=== PATIENT | male | born 1980 | race Caucasian/White ===

== ENCOUNTER → 2021-07-02 13:45 | Outpatient (CLI) | payer OTHER, SELFPAY ==
--- NOTE | ~2021-07-02 | XR_ITS ---
EXAMINATION: XR elbow RT min 3V DATE: 07/02/2021 14:02 INDICATION: Right elbow injury. TECHNIQUE: 4 views of right elbow were obtained. COMPARISON: None. FINDINGS: Bone alignment is normal. No fracture. Joint spaces are well maintained. There is no elbow joint effusion. IMPRESSION: 1. Normal right elbow. Reviewed, dictated and finalized at location A. ONAL LINES AGENT IMPRESSION: 1. Normal right elbow.
== END ==
PROVIDERS: PCP Physician Assistant; Visit Provider Physician Assistant
DX: S59.901A Unspecified injury of right elbow, initial encounter (principal); X58.XXXA Exposure to other specified factors, initial encounter
CPT/HCPCS: 73080

== ENCOUNTER 2022-11-10 12:52 | Outpatient (CLI) | payer OTHER, SELFPAY ==
--- NOTE | 2022-11-10 14:30 | NEURO_ITS ---
Impression: # Complains of numbness and pain in hands. # Bilateral Carpal Tunnel Syndrome, right more than left. # No ulnar neuropathy. # Normal needle/EMG. Nerve Conduction Studies Anti Sensory Summary Table Stim Site NR Peak (ms) P-T Amp (?V) Site1 Site2 Delta-P (ms) Dist (cm) Andres (m/s) Left Median Anti Sensory (2-3nd Digit) Wrist 3.9 19.1 Wrist 2-3nd Digit 3.9 14.0 36 Wrist 4.2 19.1 Wrist 2-3nd Digit 3.9 14.0 36 Right Median Anti Sensory (2-3nd Digit) Wrist 4.2 29.8 Wrist 2-3nd Digit 4.2 14.0 33 Wrist 5.8 60.0 Wrist 2-3nd Digit 4.2 14.0 33 Left Radial Anti Sensory (Base 1st Digit) Wrist 2.3 22.7 Wrist Base 1st Digit 2.3 0.0 Right Radial Anti Sensory (Base 1st Digit) Wrist 2.4 7.6 Wrist Base 1st Digit 2.4 0.0 Left Ulnar Anti Sensory (5th Digit) Wrist 2.7 32.0 Wrist 5th Digit 2.7 14.0 52 Right Ulnar Anti Sensory (5th Digit) Wrist 2.7 15.3 Wrist 5th Digit 2.7 14.0 52 Motor Summary Table Stim Site NR Onset (ms) O-P Amp (mV) Site1 Site2 Delta-0 (ms) Dist (cm) Andres (m/s) Left Median Motor (Abd Poll Brev) Wrist 4.8 3.0 Elbow Wrist 6.1 32.0 52 Elbow 10.9 1.6 Right Median Motor (Abd Poll Brev) Wrist 5.1 3.2 Elbow Wrist 6.2 32.0 52 Elbow 11.3 2.5 Left Ulnar Motor (Abd Dig Minimi) Wrist 2.7 9.1 A Elbow Wrist 5.8 32.0 55 A Elbow 8.5 7.7 Right Ulnar Motor (Abd Dig Minimi) Wrist 2.6 7.6 A Elbow Wrist 5.8 32.0 55 A Elbow 8.4 6.2 F Wave Studies NR F-Lat (ms) L-R F-Lat (ms) Left Median (Mrkrs) (Abd Poll Brev) 31.37 1.56 Right Median (Mrkrs) (Abd Poll Brev) 32.93 1.56 Left Ulnar (Mrkrs) (Abd Dig Min) 31.09 0.17 Right Ulnar (Mrkrs) (Abd Dig Min) 31.27 0.17 EMG Side Muscle Nerve Root Ins Act Fibs Amp Dur Recrt Comment Right 1stDorInt Ulnar C8-T1 Nml Nml Nml Nml Nml Right Ext Indicis Radial (Post Int) C7-8 Nml Nml Nml Nml Nml Right Ext Digitorum Radial (Post Int) C7-8 Nml Nml Nml Nml Nml Right BrachioRad Radial C5-6 Nml Nml Nml Nml Nml Right PronatorTeres Median C6-7 Nml Nml Nml Nml Nml Right Abd Poll Brev Median C8-T1 Nml Nml Nml Nml Nml Left 1stDorInt Ulnar C8-T1 Nml Nml Nml Nml Nml Left Ext Indicis Radial (Post Int) C7-8 Nml Nml Nml Nml Nml Left Ext Digitorum Radial (Post Int) C7-8 Nml Nml Nml Nml Nml Left BrachioRad Radial C5-6 Nml Nml Nml Nml Nml Left PronatorTeres Median C6-7 Nml Nml Nml Nml Nml Left Abd Poll Brev Median C8-T1 Nml Nml Nml Nml Nml MTDD
== END 2022-11-10 12:53 | disposition home or self-care (01) ==
LOC: ANHNEURO 12:53
PROVIDERS: PCP Physician Assistant; Visit Provider Orthopaedic Surgery
DX: G56.03 Carpal tunnel syndrome, bilateral upper limbs (principal)
CPT/HCPCS: 95886; 95911

== ENCOUNTER 2023-06-09 12:21 | Outpatient (CLI) | payer OTHER, SELFPAY ==
--- NOTE | 2023-06-09 15:44 | ECG_ITS ---
Measurements Intervals Horner Rate: 81 P: 35 MA: 155 QRS: 12 QRSD: 98 T: 24 QT: 362 QTc: 421 Interpretive Statements SINUS RHYTHM NONSPECIFIC T-WAVE ABNORMALITY ABNORMAL ECG NO PREVIOUS ECG AVAILABLE FOR COMPARISON Electronically Signed On 06-10-2023 15:03:41 CHEMICAL RESEARCH WORKER by Esau Garcia M.D.
== END 2023-06-09 12:22 | disposition home or self-care (01) ==
PROVIDERS: PCP Physician Assistant; Visit Provider Orthopaedic Surgery
DX: I10 Essential (primary) hypertension (principal); Z01.818 Encounter for other preprocedural examination
CPT/HCPCS: 93005

== ENCOUNTER 2023-06-15 00:45 | Day surgery (SDC) | payer OTHER, SELFPAY ==
[2023-06-08 09:52] VITALS: BMI 40.2
--- NOTE | 2023-06-08 09:57 | PC.NURSE ---
Report to the Outpatient Waiting Room, entrance under the green pavilion located off [facility], at time 10:00 on date 06/15/23. Planned Procedure Time: 12:00. Time changes happen often and if your time is changed the preop area will call you the afternoon before. - You and your visitor will be asked to self-screen and do not enter if you have any COVID symptoms. - A mask is optional within the hospital at this time. Patients may have clear liquids (water, carbonated beverages, clear teas, apple juice) until 3 hours prior to surgery (9:00) with a maximum of 20 ounces. - No food from midnight until time of surgery Take the following medications with a SIP of water the morning of surgery: INHALER, ESCITALOPRAM DO NOT STOP ANY OF YOUR OTHER PRESCRIPTION MEDICATIONS PRIOR TO SURGERY ?EXCEPT THE FOLLOWING Medications to discontinue per physician: N/A Date to take last dose: N/A Please no make-up, nail upper sorbian, hairspray, perfume, deodorant, or body powder the day of surgery. No jewelry (including any body piercings) or valuables the day of surgery, leave them at home. Please take a shower or bath the night before, or the morning of, surgery with an antibacterial soap. Wear comfortable, loose fitting clothing. - Jewelry must be removed prior to entering the operating room. Rings and piercings that are not removed may be cut off. - The hospital will not accept responsibility for valuables. - Please leave all valuables, including medications, at home the day of surgery. If you are going home after surgery, a licensed nascar driver must drive you home. - NO public transportation without another adult if you receive anesthesia. - We recommend that an adult stay with you for 24 hours following discharge. - We also recommend that you do not drive, make important decision, drink alcoholic beverages, or take any drugs that were not prescribed by your health care provider for at least 24 hours after your discharge time. Follow any additional instructions given to you from your surgeon. If you or anyone in your household have experienced Covid symptoms in the past week, please notify your surgeon or the nurse liaison at the phone number below for possible testing. Telephone instructions given to PT - DAVID ELIZONDO and asked if any additional questions and then verbalized understanding. Patient advised to call surgeon office or pre surgery nurse liaison [phone] if any additional questions.
[2023-06-15] VITALS (10 sets, daily range): BP systolic 114–142; BP diastolic 71–95; PULSE 51–68; RESP 11–20; TEMP 36.2–36.6; O2SAT 96–100
--- NOTE | 2023-06-15 09:23 | PM.IMHP ---
H&P: HPI History of Present Illness Date/Time: 06/15/23 09:23 Chief Complaint: right carpal and cubital tunnel syndrome Narrative: 42-year-old male who presents today for a right carpal tunnel release and cubital tunnel decompression versus anterior transposition. He has been having symptoms for about 8 hours. He has numbness and tingling throughout the hand predominantly in the 4th and 5th fingers. He has numbness during the day. He also gets numbness while he is trying to ride his motorcycle. He gets numbness in all 5 fingers. Patient has had a nerve conduction velocity test done in 2022 which showed no ulnar neuropathy but did show bilateral carpal tunnel syndrome right greater than left. He has tried wrist braces and has avoided bending the elbow or having the elbow bent for extended periods time during the day. However he has continued symptoms of numbness and tingling in his fingers. This point he feels he would like to proceed with surgery to try to get better relief of his symptoms. Review of Systems Review of Systems: All systems reviewed & are unremarkable except as noted in HPI and below PMFSH Social History Social History Smoking packs per day: 0.75 Smoking cigarettes per day: 15.0 Years smoked: 16 Smoking pack-years: 12.00 Smoking status: Former smoker Tobacco type: cigarettes Smoking end date: 04/25/19 Alcohol intake: current Alcohol use details: RARE Substance use: current Substance use type: marijuana Living arrangements: with family Spiritual care concerns: No Meds Home Medications and Allergies Home Medications Medication Instructions Recorded Confirmed Type budesonide-formoterol HFA 160 2 inh inhalation DAILY 06/08/23 06/08/23 History mcg-4.5 mcg/actuation aerosol inhaler (Symbicort) escitalopram oxalate 10 mg tablet 10 mg PO DAILY 06/08/23 06/08/23 History losartan 100 mg tablet 100 mg PO DAILY 06/08/23 06/08/23 History montelukast 10 mg tablet 10 mg PO DAILY 06/08/23 06/08/23 History omeprazole 20 mg capsule,delayed 20 mg PO DAILY 06/08/23 06/08/23 History release phenylephrine HCl 10 mg tablet 10 mg PO DAILY 06/08/23 06/08/23 History (Sudafed PE) rosuvastatin 5 mg tablet 5 mg PO DAILY 06/08/23 06/08/23 History triamcinolone acetonide 55 mcg 1 spray intranasal DAILY 06/08/23 06/08/23 History nasal spray aerosol (Nasacort) Allergies Allergy/AdvReac Type Severity Reaction Status Date / Time Penicillins Allergy Anaphylaxis Verified 06/08/23 09:49 Exam Narrative: 42-year-old male alert. There is no subluxation of the ulnar nerve with range of motion of the right elbow. He has an extremely sensitive Tinel's over the ulnar nerve which causes tingling in the ulnar hand and 4th and 5th finger. He denies any constant sense of numbness in the ulnar 2 fingers. Tinel's over the median nerve bilaterally is negative. Phalen's maneuver causes aching some tingling in the fingers. He has normal Intrinsic strength in the hand. Thenar eminence has normal bulk. He reports no numbness or tingling to light touch to the hand or fingers. He has full range of motion of the wrist fingers and elbow. Full range of motion of the neck without discomfort. Resp: Auscultation: clear to auscultation bilaterally Cardio: Rate: regular rate Rhythm: regular rhythm Assessment and Plan Assessment and plan (1) Carpal tunnel syndrome of right wrist: Code(s): G56.01 - Carpal tunnel syndrome, right upper limb Status: Acute Plan 42-year-old male who has a positive EMG test for right greater than left carpal tunnel syndrome. He has continued symptoms of numbness in the hand. He also has evidence of cubital tunnel syndrome on the right on physical exam. He also has continued symptoms of cubital tunnel on the right. He has been having symptoms for years. He has tried nonsurgical treatment for this without improvement. I would like to proceed
[2023-06-15] MEDS: ACETAMINOPHEN 500 MG TABLET 1000 MG PO (10:54)
[2023-06-15] MEDS: KETOROLAC 15 MG/ML VIAL (*BKC) IV PUSH (10:55)
--- NOTE | 2023-06-15 11:04 | WPDANESEPPF ---
Anes - Initial Pre Proc Eval Procedure: Operation Date: 06/15/23 12:00 Proposed Procedures p Right Carpal Tunnel Release - Blaine Mercado MD s Right Cubital Tunnel Release versus Possible Anterior Transposition Ulnar Nerve - Blaine Mercado MD Date/Time: 06/15/23 11:04 Surgeon: Blaine Mercado MD Pre Op Diagnosis: Rt Carpal Tunnel Syndrome, Rt Cubital Tunnel Syn Patient Data Age: 42 Gender: M Height: 1.85 m Weight: 136.4 kg Last Vital Signs Temp 36.6 C 06/15/23 10:20 Pulse 68 06/15/23 10:20 Resp 20 06/15/23 10:20 BP 142/82 H 06/15/23 10:20 Pulse Ox 97 06/15/23 10:20 O2 Del Method Room Air 06/15/23 10:20 Allergies Allergy/AdvReac Type Severity Reaction Status Date / Time Penicillins Allergy Anaphylaxis Verified 06/15/23 09:53 Home Medications Medication Instructions Recorded Confirmed Type budesonide-formoterol HFA 160 2 inh inhalation DAILY 06/08/23 06/15/23 History mcg-4.5 mcg/actuation aerosol inhaler (Symbicort) escitalopram oxalate 10 mg tablet 10 mg PO DAILY 06/08/23 06/15/23 History losartan 100 mg tablet 100 mg PO DAILY 06/08/23 06/15/23 History montelukast 10 mg tablet 10 mg PO DAILY 06/08/23 06/15/23 History omeprazole 20 mg capsule,delayed 20 mg PO DAILY 06/08/23 06/15/23 History release phenylephrine HCl 10 mg tablet 10 mg PO DAILY 06/08/23 06/15/23 History (Sudafed PE) rosuvastatin 5 mg tablet 5 mg PO DAILY 06/08/23 06/15/23 History triamcinolone acetonide 55 mcg 1 spray intranasal DAILY 06/08/23 06/15/23 History nasal spray aerosol (Nasacort) Patient hx anesthesia problems: none Family hx anesthesia problems: none Results Review: All pre-operative results and documents have been reviewed as part of the pre-operative evaluation. [facility] Social History Social History Smoking packs per day: 0.75 Smoking cigarettes per day: 15.0 Years smoked: 16 Smoking pack-years: 12.00 Smoking status: Former smoker Tobacco type: cigarettes Smoking end date: 04/25/19 Alcohol intake: current Alcohol use details: RARE Substance use: current Substance use type: marijuana Living arrangements: with family Spiritual care concerns: No Anes - Eval Final PreProcedure Day of Procedure 06/15/23 11:04 Patient weight: obese Heart: regular rate and rhythm Lungs: decreased breath sounds Airway: Mallampati scale class II Neurological: alert and oriented Last oral intake: >/= 8 hours ASA classification: III Emergent: no Anesthetic plan: proceed Anesthesia type and monitoring: general LMA and standard monitoring Results Review: All pre-operative results and documents have been reviewed as part of the pre-operative evaluation. Informed Consent: The patient's anesthetic plan and its attendant risks and benefits were discussed with the patient/family/POA. Questions were solicited and answers provided to the satisfaction of the patient/family/POA.
[2023-06-15] MEDS: LACTATED RINGERS 1,000 ML 30 ML IV CONT ×3 (11:47→14:36)
[2023-06-15] MEDS: SCOPOLAMINE 1 MG PATCH 1 PATCH TRANSDERM (11:50)
--- NOTE | 2023-06-15 12:00 | WPDHPUPDATE1 ---
History and Physical Update Update Date/Time: 06/15/23 12:00 History and Physical has been reviewed, including an updated exam of the patient. There are NO changes in the patient's condition. Risks, benefits, and alternatives have been discussed and questions answered. Patient agrees to proceed with procedure.
[2023-06-15] MEDS: ceFAZolin 3 GM/D5W 100 ML 100 ML IVPB (12:18)
[2023-06-15] MEDS: LIDO 1%/EPINEPHRINE 1:100,000 50 ML VIAL 30 ML INFILTRATE (12:53)
--- NOTE | 2023-06-15 14:26 | P.OP_ITS ---
Procedure Note - Detailed Date of Procedure 06/15/23 Pre-op Diagnosis Rt Carpal Tunnel Syndrome, Rt Cubital Tunnel Syn Post-op Diagnosis Same Procedure Performed Right cubital tunnel decompression, right carpal tunnel release Surgeon Blaine Mercado MD Desk Pen Set Assembler Tushar Anesthesia General Description of Procedure Patient was brought to the operating room and general anesthesia was administered. He received 3 g of Ancef IV and had no reaction. Right arm was prepped draped usual fashion. Limb was exsanguinated tourniquet elevated to 250 mmHg. Prior to elevation of the tourniquet the incision was marked over the cubital tunnel 6 cm longitudinal incision and 1 in incision marked at the base of the palm in line with the radial border of 4th ray. Local anesthesia was administered 1% lidocaine with epinephrine at both. 6 cm longitudinal incision was made centered over the cubital tunnel. Dissection was carried down through the skin and and we carefully dissected through the subcutaneous fat and bursal tissue. We identified 2 branches of medial brachial cutaneous nerves spanning the mid and distal portions of the incisions and these were isolated with vessel loops. Fascia over the ulnar nerve just proximal to the cubital tunnel the cubital tunnel and the fascia over the half see you was exposed. We incised fascia proximal to the cubital tunnel identifying the ulnar nerve and then we decompress the cubital tunnel proximally distal toward the posterior side of the cubital tunnel and then incised the flexor carpi ulnaris fascia over the ulnar for distance of 2 cm distal to the medial epicondyle and deep fascia was released seemed to be bit tight. The nerve was large there was no bulbous swelling. The elbow was taken through range of motion there was no subluxation. The 1 in incision at the base of the palm line with the 4th ray axis was incised. Dissection carried down through the superficial palmar fascia the transverse carpal ligament which was longitudinally incised. Complete release was achieved distally. Proximally a subcutaneous fat was elevated off the distal volar form fascia and a Erie and elevator passed underneath the fascia from the underlying nerve and the fascia was split for a distance of 3 cm proximal to the flexor crease of the wrist completing the decompression. The nerve was visualized and looked unremarkable there are no masses the canal. Tourniquet was released release related. The appropriate tunnel incision was repaired with interrupted simple and horizontal mattress 4-0 nylon sutures. The cubital tunnel decompressions his was closed with 3-0 subcutaneous Vicryl and glue. EBL was probably 3 cc, unremarkable. Total tourniquet time was 44 minutes. Soft bulky dressings were applied the patient transferred postop recovery room stable condition. Estimated Blood Loss 3 Tourniquet Time Total Tourniquet Time: 44 Complications No immediate complications Disposition PACU
[2023-06-15] MEDS: oxyCODONE HCL (*CRX) 5 MG TAB IR PO (15:20)
== END 2023-06-15 16:05 | disposition home or self-care (01) ==
PROVIDERS: PCP Physician Assistant; Visit Provider Orthopaedic Surgery
PROC: (CPT 64721; principal; 2023-06-15 12:00)
PROC: (CPT 64721; 2023-06-15 12:00)
DX: G56.01 Carpal tunnel syndrome, right upper limb (principal); G56.21 Lesion of ulnar nerve, right upper limb; Z79.51 Long term (current) use of inhaled steroids; Z87.891 Personal history of nicotine dependence; F12.90 Cannabis use, unspecified, uncomplicated; E66.9 Obesity, unspecified; Z68.39 Body mass index [BMI] 39.0-39.9, adult
CPT/HCPCS: 64721; 64718; 93005; A4565; A9270; J0690; J1100; J1885; J2250; J2405; J2704; J3010; J7120

== ENCOUNTER 2023-06-29 01:18 | Day surgery (SDC) | payer OTHER, SELFPAY ==
--- NOTE | 2023-06-21 14:45 | PC.NURSE ---
Report to the Outpatient Waiting Room, entrance under the green pavilion located off [facility], at time 1100 on date 06/29/23. Planned Procedure Time: 1300. Time changes happen often and if your time is changed the preop area will call you the afternoon before. - You and your visitor will be asked to self-screen and do not enter if you have any COVID symptoms. - A mask is optional within the hospital at this time. Patients may have clear liquids (water, carbonated beverages, clear teas, apple juice) until 3 hours prior to surgery with a maximum of 20 ounces. - No food from midnight until time of surgery Take the following medications with a SIP of water the morning of surgery: INHALER, ESCITALOPRAM DO NOT STOP ANY OF YOUR OTHER PRESCRIPTION MEDICATIONS PRIOR TO SURGERY ?EXCEPT THE FOLLOWING Medications to discontinue per physician: N/A Date to take last dose: N/A Please no make-up, nail hungarian, hairspray, perfume, deodorant, or body powder the day of surgery. No jewelry (including any body piercings) or valuables the day of surgery, leave them at home. Please take a shower or bath the night before, or the morning of, surgery with an antibacterial soap. Wear comfortable, loose fitting clothing. - Jewelry must be removed prior to entering the operating room. Rings and piercings that are not removed may be cut off. - The hospital will not accept responsibility for valuables. - Please leave all valuables, including medications, at home the day of surgery. If you are going home after surgery, a licensed train driver must drive you home. - NO public transportation without another adult if you receive anesthesia. - We recommend that an adult stay with you for 24 hours following discharge. - We also recommend that you do not drive, make important decision, drink alcoholic beverages, or take any drugs that were not prescribed by your health care provider for at least 24 hours after your discharge time. Follow any additional instructions given to you from your surgeon. If you or anyone in your household have experienced Covid symptoms in the past week, please notify your surgeon or the nurse liaison at the phone number below for possible testing. Telephone instructions given to PT - DAVID ELIZONDO and asked if any additional questions and then verbalized understanding. Patient advised to call surgeon office or pre surgery nurse liaison [phone] if any additional questions.
[2023-06-21 14:47] VITALS: BMI 39.6
--- NOTE | 2023-06-24 08:56 | PM.IMHP ---
H&P: HPI History of Present Illness Date/Time: 06/24/23 08:56 Chief Complaint: Left carpal tunnel syndrome Narrative: 42-year-old male presents today for a left carpal tunnel release. Patient underwent right carpal tunnel release and cubital tunnel decompression on June 15. He had good relief of his symptoms. He has continued sense of numbness and tingling in the left hand. He has had a nerve test last summer which showed bilateral carpal tunnel syndrome. Patient is continuing to have tingling in the left hand predominantly in the central 3 fingers. At this point he feels he is ready proceed with left carpal tunnel release. Review of Systems Review of Systems: All systems reviewed & are unremarkable except as noted in HPI and below PMFSH Social History Social History Smoking packs per day: 0.75 Smoking cigarettes per day: 15.0 Years smoked: 16 Smoking pack-years: 12.00 Smoking status: Former smoker Tobacco type: cigarettes Smoking end date: 04/25/19 Alcohol intake: current Alcohol use details: RARE Substance use: current Substance use type: marijuana Living arrangements: with family Spiritual care concerns: No Meds Home Medications and Allergies Home Medications Medication Instructions Recorded Confirmed Type budesonide-formoterol HFA 160 2 inh inhalation DAILY 06/08/23 06/21/23 History mcg-4.5 mcg/actuation aerosol inhaler (Symbicort) escitalopram oxalate 10 mg tablet 10 mg PO DAILY 06/08/23 06/21/23 History losartan 100 mg tablet 100 mg PO DAILY 06/08/23 06/21/23 History montelukast 10 mg tablet 10 mg PO DAILY 06/08/23 06/21/23 History omeprazole 20 mg capsule,delayed 20 mg PO DAILY 06/08/23 06/21/23 History release phenylephrine HCl 10 mg tablet 10 mg PO DAILY 06/08/23 06/21/23 History (Sudafed PE) rosuvastatin 5 mg tablet 5 mg PO DAILY 06/08/23 06/21/23 History triamcinolone acetonide 55 mcg 1 spray intranasal DAILY 06/08/23 06/21/23 History nasal spray aerosol (Nasacort) Allergies Allergy/AdvReac Type Severity Reaction Status Date / Time Penicillins Allergy Anaphylaxis Verified 06/21/23 14:44 Exam Narrative: 42-year-old male alert pleasant. He has full range of motion of the elbow wrist and fingers. Positive Tinel's over the median nerve which causes him tingling and central 3 fingers. Positive carpal tunnel compression test on the left wrist. Positive Phalen's maneuver. Neck range of motion causes no discomfort, negative Spurling's maneuver. 2+ radial pulse in the wrist. He has normal 2 point discrimination in all fingers. Resp: Auscultation: clear to auscultation bilaterally Cardio: Rate: regular rate Rhythm: regular rhythm Assessment and Plan Assessment and plan (1) Left carpal tunnel syndrome: Code(s): G56.02 - Carpal tunnel syndrome, left upper limb Status: Acute Plan 42-year-old male who has left carpal tunnel syndrome with continued symptoms on a daily basis. He did well with his right carpal tunnel release and is ready proceed with the left surgical procedure as well as the risks and complications were discussed in detail and all questions were answered and we will proceed.
[2023-06-29] VITALS (8 sets, daily range): BP systolic 122–139; BP diastolic 80–94; PULSE 55–74; RESP 10–18; TEMP 36.2–36.5; O2SAT 93–99
--- NOTE | 2023-06-29 11:19 | SUR.PREOP ---
1055-Pt states was instructed and used I/S post op 2 weeks ago and feels comfortable w/usage.
[2023-06-29] MEDS: ACETAMINOPHEN 500 MG TABLET 1000 MG PO (11:24)
[2023-06-29] MEDS: LACTATED RINGERS 1,000 ML 30 ML IV CONT (11:30)
[2023-06-29] MEDS: KETOROLAC 15 MG/ML VIAL (*BKC) IV PUSH (11:49)
--- NOTE | 2023-06-29 11:52 | WPDHPUPDATE1 ---
History and Physical Update Update Date/Time: 06/29/23 11:52 History and Physical has been reviewed, including an updated exam of the patient. There are NO changes in the patient's condition. Risks, benefits, and alternatives have been discussed and questions answered. Patient agrees to proceed with procedure.
--- NOTE | 2023-06-29 12:30 | WPDANESEPPF ---
Anes - Initial Pre Proc Eval Procedure: Operation Date: 06/29/23 13:00 Proposed Procedures p Left Carpal Tunnel Release - Blaine Mercado MD Date/Time: 06/29/23 12:30 Surgeon: lBaine Mercado MD Pre Op Diagnosis: Lt Carpal Tunnel Syn Patient Data Age: 42 Gender: M Height: 1.85 m Weight: 138.3 kg Last Vital Signs Temp 97.7 F 06/29/23 10:55 Pulse 65 06/29/23 10:55 Resp 16 06/29/23 10:55 BP 128/81 06/29/23 10:55 Pulse Ox 96 06/29/23 10:55 O2 Del Method Room Air 06/29/23 10:55 Allergies Allergy/AdvReac Type Severity Reaction Status Date / Time Penicillins Allergy Anaphylaxis Verified 06/21/23 14:44 Home Medications Medication Instructions Recorded Confirmed Type budesonide-formoterol HFA 160 2 inh inhalation DAILY 06/08/23 06/29/23 History mcg-4.5 mcg/actuation aerosol inhaler (Symbicort) escitalopram oxalate 10 mg tablet 10 mg PO DAILY 06/08/23 06/29/23 History losartan 100 mg tablet 100 mg PO DAILY 06/08/23 06/29/23 History montelukast 10 mg tablet 10 mg PO DAILY 06/08/23 06/29/23 History omeprazole 20 mg capsule,delayed 20 mg PO DAILY 06/08/23 06/29/23 History release phenylephrine HCl 10 mg tablet 10 mg PO DAILY 06/08/23 06/29/23 History (Sudafed PE) rosuvastatin 5 mg tablet 5 mg PO DAILY 06/08/23 06/29/23 History triamcinolone acetonide 55 mcg 1 spray intranasal DAILY 06/08/23 06/29/23 History nasal spray aerosol (Nasacort) Patient hx anesthesia problems: none Family hx anesthesia problems: none Results Review: All pre-operative results and documents have been reviewed as part of the pre-operative evaluation. [facility] Social History Social History Smoking packs per day: 0.75 Smoking cigarettes per day: 15.0 Years smoked: 16 Smoking pack-years: 12.00 Smoking status: Former smoker Tobacco type: cigarettes Smoking end date: 04/25/19 Alcohol intake: current Alcohol use details: RARE Substance use: current Substance use type: marijuana Living arrangements: with family Spiritual care concerns: No Anes - Eval Final PreProcedure Day of Procedure 06/29/23 12:30 Patient weight: morbidly obese Heart: regular rate and rhythm Lungs: clear to auscultation Airway: Mallampati scale class II Neurological: alert and oriented Last oral intake: >/= 8 hours ASA classification: III Emergent: no Anesthetic plan: proceed Anesthesia type and monitoring: general LMA and standard monitoring Results Review: All pre-operative results and documents have been reviewed as part of the pre-operative evaluation. Informed Consent: The patient's anesthetic plan and its attendant risks and benefits were discussed with the patient/family/POA. Questions were solicited and answers provided to the satisfaction of the patient/family/POA.
[2023-06-29] MEDS: ceFAZolin 3 GM/D5W 100 ML 100 ML IVPB (12:58)
[2023-06-29] MEDS: LIDO 1%/EPINEPHRINE 1:100,000 20 ML VIAL 5 ML INFILTRATE (13:17)
--- NOTE | 2023-06-29 13:42 | P.OP_ITS ---
Procedure Note - Detailed Date of Procedure 06/29/23 Pre-op Diagnosis Lt Carpal Tunnel Syn Post-op Diagnosis Same Procedure Performed Left carpal tunnel release Surgeon Blaine Mercado MD Anesthesia General Description of Procedure Patient was brought to the operating room and general anesthesia was administered IV an LMA placed. He received 3 g of Ancef preoperatively. The left arm was prepped draped usual fashion. Limb was exsanguinated tourniquet elevated to 250 mmHg. A 2.5 cm longitudinal incision was made at the base of the palm in line with the radial border of the 4th ray. Dissection was carried down through the superficial palmar fascia the transverse carpal ligament which was longitudinally incised. Complete release was achieved distally. Proximally subcutaneous fat was elevated off the distal volar forearm fascia in a Mason elevator passed beneath the fascia from the underlying nerve. The fascia was then split for a distance of 3 cm proximal to the flexor crease of the wrist completing the decompression. All tourniquet was released wound irrigated and hemostasis was achieved. Wound was closed with 4-0 nylon suture simples and horizontal mattress-type soft bulky dressing applied the patient transferred to postop recovery room in stable condition. No known complic ations. Tourniquet Time Total Tourniquet Time: 11
[2023-06-29] MEDS: fentaNYL CITRATE INJ (*CRX) 100 MCG/2 ML VIAL 25 MCG IV PUSH (14:20)
== END 2023-06-29 15:30 | disposition home or self-care (01) ==
PROVIDERS: PCP Physician Assistant; Visit Provider Orthopaedic Surgery
PROC: (CPT 64721; principal; 2023-06-29 13:00)
DX: G56.02 Carpal tunnel syndrome, left upper limb (principal); Z79.51 Long term (current) use of inhaled steroids; Z87.891 Personal history of nicotine dependence; E66.01 Morbid (severe) obesity due to excess calories; Z68.41 Body mass index [BMI] 40.0-44.9, adult
CPT/HCPCS: 64721; A9270; J0690; J1100; J1885; J2250; J2405; J2704; J3010; J7120